=== PATIENT | female | born 1995 | race Hispanic/Latino ===

== ENCOUNTER 2020-07-19 15:15 | Emergency (ER) | payer OTHER ==
[~2020-07-19] VITALS: Ht 157.5 cm; Wt 76.0 kg
[2020-07-19] MEDS ORDERED: ONDANSETRON HCL INJ 2MG/ML 2ML 2 MG/ML VIAL IV STA (15:44)
[2020-07-19] MEDS ORDERED: FAMOTIDINE 20 MG/2 ML VIAL IV STA (15:44)
[2020-07-19] MEDS ORDERED: SODIUM CHLORIDE 0.9% 1000ML 1,000 ML IV STA ×3 (15:44→16:51)
[2020-07-19] MEDS ORDERED: SODIUM CHLORIDE FLUSH 10 ML SYR INJ PRN (15:45)
[2020-07-19] MEDS ORDERED: MAGNESIUM/ALUMINUM/SIMETHICONE 30 ML UDC ONE (16:00)
[2020-07-19] MEDS ORDERED: SODIUM CHLORIDE 0.9% 1000ML 2,000 ML ONE (16:00)
[2020-07-19] MEDS ORDERED: BELLADONNA ALK/PHENOBARBITAL 5 ML UDC ONE (16:00)
[2020-07-19] MEDS ORDERED: LIDOCAINE VISC 2% SOLN 15 ML UDC ONE (16:00)
[2020-07-19] MEDS ORDERED: CIPROFLOXACIN 400 MG/D5W 200ML 200 ML IV STA (16:47)
[2020-07-19] MEDS ORDERED: METRONIDAZOLE 500MG/NS 100ML 100 ML IV ONE ×2 (17:00→17:06)
[2020-07-19] MEDS ORDERED: IOPAMIDOL 370 MG/ML 200 ML INFUS..BTL INJ ONE (17:01)
[2020-07-19] MEDS ORDERED: SODIUM CHLORIDE 0.9% 50ML 50 ML ONE (17:01)
[2020-07-19] MEDS ORDERED: CIPROFLOXACIN 400 MG/D5W 200ML 200 ML IV ONE (17:06)
[2020-07-19] MEDS ORDERED: SODIUM CHLORIDE 0.9% 1000ML 1,000 ML ONE (17:06)
[2020-07-19] MEDS ORDERED: KETOROLAC TROMETHAMINE 30 MG/ML VIAL IV STA (19:10)
[2020-07-19] MEDS ORDERED: PROMETHAZINE 25MG/ NS 50ML (IV) IV ONE (19:15)
[2020-07-19] MEDS ORDERED: PROMETHAZINE HCL (IM) 25 MG/ML VIAL IM ONE ×3 (19:19→19:30)
[2020-07-19] MEDS ORDERED: SODIUM CHLORIDE 0.9% 100 ML ONE (19:20)
[2020-07-19] MEDS ORDERED: METHYLPREDNISOLONE SOD SUCC 125 MG/2ML VIAL IV ONE (19:30)
[2020-07-19] MEDS ORDERED: METHYLPREDNISOLONE SOD SUCC 125 MG/2ML VIAL ONE (20:04)
[2020-07-19] MEDS ORDERED: POTASSIUM CHLORIDE 20 MEQ TAB CR PO STA (20:17)
[2020-07-19] MEDS ORDERED: POTASSIUM CHLORIDE 20 MEQ TAB CR PO ONE (20:24)
[2020-07-19] MEDS ORDERED: CIPRO500 MG PO (20:36)
[2020-07-19] MEDS ORDERED: PREDNISONE20 MG PO (20:36)
[2020-07-19] MEDS ORDERED: PHENERGAN SUPP25 MG PR (20:36)
[2020-07-19] MEDS ORDERED: FERROUS SULFAT325 M1 PO (20:36)
[2020-07-19] MEDS ORDERED: PROTONIX40 MG PO (20:36)
[2020-07-19] MEDS ORDERED: METRONIDAZOLE500 MG PO (20:36)
[2020-07-19] MEDS ORDERED: ULTRAM50 MG PO (20:36)
[2020-07-19] MEDS ORDERED: ONDANSETRON ODT8 MG SL (20:36)
[2020-07-19] MEDS ORDERED: IMODIUM A-D2 M2 PO (20:42)
[2020-07-19] MEDS ORDERED: DONNATAL/LIDOCAINE/MAALOX 30 ML SUSP PO SCH ×2 (21:00)
== END 2020-07-19 21:03 | disposition home or self-care (01) ==
LOC: FSED 16:12
DX: K52.9 Noninfective gastroenteritis and colitis, unspecified (principal); R10.13 Epigastric pain; E86.0 Dehydration; E87.6 Hypokalemia; D50.9 Iron deficiency anemia, unspecified
CPT/HCPCS: 74177; 80048; 80076; 81003; 81025; 85025; 96374; 96375; 99284; J0744; J1885; J2405; J2550; J2930; J7030; J7050; Q9967